=== PATIENT | male | born 1955 | race Caucasian/White ===

== ENCOUNTER 2017-11-13 20:44 | Inpatient (IN) | payer MEDICAID, OTHER ==
[2017-11-13] MEDS: SOD CHLORIDE 0.9% 1,000 ML IV (22:21)
[2017-11-13 22:30] LABS: WHITE BLOOD COUNT 10.1 10^3/ul (4.8-10.8)
[2017-11-13 22:30] LABS: ABNORMAL IP MESSAGE 1; HEMATOCRIT 17.7 % (42.0-52.0); MEAN CORPUSCULAR HEMOGLOBIN 29.1 pg (29.0-33.0); MEAN CORPUSCULAR HGB CONC 29.9 g/dl (32.0-37.0); MEAN CORPUSCULAR VOLUME 97.3 fl (82.0-101.0); MEAN PLATELET VOLUME 9.9 fl (7.4-10.4); PLATELET COUNT 221 10^3/UL (140-415); POSITIVE DIFF @See below; RED BLOOD COUNT 1.82 10^6/ul (4.70-6.10); RED CELL DISTRIBUTION WIDTH 14.5 % (11.5-14.5)
[2017-11-13 22:36] LABS: ADD MAN DIFF? YES; HEMOGLOBIN 5.3 g/dl (14.0-18.0)
[2017-11-13 22:37] LABS: PATH REVIEW? YES
[2017-11-13] MEDS: SOD CHLORIDE 0.9% 250 ML IV (22:52)
[2017-11-13 23:04] LABS: B-TYPE NATRIURETIC PEPTIDE 27400 PG/ML (0-125)
[2017-11-13 23:12] LABS: LACTIC ACID 0.6 mmol/L (0.5-2.0)
[2017-11-13 23:21] LABS: ALANINE AMINOTRANSFERASE 28 IU/L (13-69); ALBUMIN 3.4 g/dl (3.3-4.9); ALBUMIN/GLOBULIN RATIO 1.25; ALKALINE PHOSPHATASE 61 IU/L (42-121); ANION GAP 27 (8-16); ASPARTATE AMINO TRANSFERASE 33 IU/L (15-46); BLOOD UREA NITROGEN 99 mg/dl (7-20); CALCIUM 8.7 mg/dl (8.4-10.2); CARBON DIOXIDE 10 mmol/L (21-31); CHLORIDE 109 mmol/L (97-110); GLUCOSE 186 mg/dl (70-220); LIPASE 99 U/L (23-300); POTASSIUM 5.9 mmol/L (3.5-5.1); SODIUM 140 mmol/L (135-144); TOTAL PROTEIN 6.1 g/dl (6.1-8.1)
[2017-11-13 23:34] LABS: TROPONIN-I 0.022 ng/ml (0.000-0.120)
[2017-11-13 23:43] LABS: ANISOCYTOSIS 1+ (0-0); EOSINOPHILS % (M) 5 % (0-7); LYMPHOCYTES #M 1.4 10^3/ul (0.8-2.9); LYMPHOCYTES % (M) 14 % (15-51); MONOCYTE #M 0.4 10^3/ul (0.3-0.9); MONOCYTES % (M) 4 % (0-11); PLATELET ESTIMATE NORMAL; POIKILOCYTOSIS 3+ (0-0); POLYCHROMASIA 1+ (0-0); SEGMENTED NEUTROPHILS (M) % 77 % (39-77)
[2017-11-14] MEDS ORDERED: BISACODYL (EC) 5 MG TAB PO (01:00)
[2017-11-14] MEDS ORDERED: morphine 2 MG INJ IV (01:00)
[2017-11-14] MEDS ORDERED: NACL 0.9% 3 ML SYG IV (01:00)
[2017-11-14] MEDS ORDERED: ONDANSETRON 4 MG TAB PO (01:00)
[2017-11-14 01:08] LABS: Allen Test ACCEPTAB; Arterial Base Excess -16.9 mmol/L (-3.0-3); Arterial Blood Gas Oxygen Sat 92.8 mmHG (95.0-98.0); Arterial COHb 0.8 % (0.0-3.0); Arterial Fraction of Oxyhgb 92.1 % (93.0-99.0); Arterial HCO3 9.6 mmol/L (22.0-26.0); Arterial MetHb 0 % (0.0-1.5); Arterial Total Hemglobin 5.6 g/dl (12.0-18.0); Arterial pCO2 25.1 mmhg (35-45); MODE ROOM AIR; Site Right Radial
[2017-11-14] MEDS: FUROSEMIDE 40 MG INJ IV ×2 (02:18→05:17)
[2017-11-14] MEDS: NA BICARBONATE 8.4% 50 ML SYG IV ×2 (02:53→05:16)
[2017-11-14] MEDS: PANTOPRAZOLE (EC) 40 MG TAB PO (05:17)
[2017-11-14] MEDS: METOLAZONE 2.5 MG TAB PO (06:16)
[2017-11-14] MEDS: hydrALAzine 20 MG INJ IV ×4 (07:17→23:55)
[2017-11-14] MEDS: NIFEdipine (XL) 60 MG TAB PO (09:09)
[2017-11-14] MEDS: PENTOXIFYLLINE (SR) 400 MG TAB PO (09:09)
[2017-11-14] MEDS ORDERED: GLUCOSE GEL 15 GRAM TUBE PO ×2 (09:30)
[2017-11-14] MEDS ORDERED: GLUCAGON 1 MG INJ IM (09:30)
[2017-11-14] MEDS ORDERED: DEXTROSE 50% 50 ML SYRINGE IV ×2 (09:30)
[2017-11-14] MEDS ORDERED: GLUCOSE GEL 15 GRAM TUBE BUCCAL (09:30)
[2017-11-14 09:47] LABS: IMMEDIATE SPIN CROSSMATCH 1 4
[2017-11-14] MEDS: INSULIN ASPART [NOVOLOG] 3 ML PEN SC ×3 (11:15→20:26)
[2017-11-14 14:42] LABS: WHITE BLOOD COUNT 8.8 10^3/ul (4.8-10.8)
[2017-11-14 14:42] LABS: ADD MAN DIFF? NO; BASOPHILS % 0.3 % (0.0-2.0); EOSINOPHILS # 0.4 10^3/ul (0.0-0.5); EOSINOPHILS % 4.3 % (0.0-7.0); HEMATOCRIT 25.2 % (42.0-52.0); HEMOGLOBIN 8.3 g/dl (14.0-18.0); LYMPHOCYTES # 0.9 10^3/ul (0.8-2.9); LYMPHOCYTES % 10.7 % (15.0-51.0); MEAN CORPUSCULAR HEMOGLOBIN 30.6 pg (29.0-33.0); MEAN CORPUSCULAR HGB CONC 32.9 g/dl (32.0-37.0); MEAN PLATELET VOLUME 10.2 fl (7.4-10.4); MONOCYTE # 0.9 10^3/ul (0.3-0.9); MONOCYTES % 9.8 % (0.0-11.0); NEUTROPHIL # 6.5 10^3/ul (1.6-7.5); PLATELET COUNT 184 10^3/UL (140-415); RED BLOOD COUNT 2.71 10^6/ul (4.70-6.10); RED CELL DISTRIBUTION WIDTH 14.7 % (11.5-14.5)
[2017-11-14 15:13] LABS: ALANINE AMINOTRANSFERASE 23 IU/L (13-69); ALBUMIN 3.3 g/dl (3.3-4.9); ALBUMIN/GLOBULIN RATIO 1.13; ALKALINE PHOSPHATASE 57 IU/L (42-121); ANION GAP 25 (8-16); ASPARTATE AMINO TRANSFERASE 31 IU/L (15-46); BLOOD UREA NITROGEN 98 mg/dl (7-20); CALCIUM 8.5 mg/dl (8.4-10.2); CARBON DIOXIDE 13 mmol/L (21-31); CHLORIDE 111 mmol/L (97-110); CHOL/HDL RATIO 3.3 RATIO; CHOLESTEROL 90 mg/dl (100-200); CREATININE 13.46 mg/dl (0.61-1.24); GLUCOSE 95 mg/dl (70-220); HDL CHOLESTEROL 27 mg/dl (30-78); LDL CHOLESTEROL,CALCULATED 37 mg/dl; MAGNESIUM 3.1 mg/dl (1.7-2.5); POTASSIUM 5.1 mmol/L (3.5-5.1); SODIUM 144 mmol/L (135-144); TOTAL PROTEIN 6.2 g/dl (6.1-8.1); TRIGLYCERIDES 130 mg/dl (0-149)
[2017-11-14 16:12] LABS: HEMOGLOBIN A1C 5.9 % (0-5.9)
[2017-11-14 17:22] LABS: ANION GAP 25 (8-16)
[2017-11-14 17:36] LABS: BLOOD UREA NITROGEN 96 mg/dl (7-20); CALCIUM 8.4 mg/dl (8.4-10.2); CARBON DIOXIDE 12 mmol/L (21-31); CHLORIDE 109 mmol/L (97-110); CREATININE 13.07 mg/dl (0.61-1.24); GLUCOSE 94 mg/dl (70-220); POTASSIUM 5.2 mmol/L (3.5-5.1); SODIUM 141 mmol/L (135-144)
[2017-11-14] MEDS: DOCUSATE SODIUM 100 MG CAP PO (20:25)
[2017-11-14] MEDS: ATORVASTATIN 80 MG TAB PO (20:25)
[2017-11-14 21:35] LABS: ADD UMIC YES; UR ASCORBIC ACID NEGATIVE (NEGATIVE); UR BILIRUBIN (Dip) NEGATIVE (NEGATIVE); UR BLOOD (Dip) 1+ mg/dL (NEGATIVE); UR CLARITY CLEAR (CLEAR); UR COLOR YELLOW (YELLOW); UR GLUCOSE (Dip) 1+ mg/dL (NEGATIVE); UR KETONES (Dip) NEGATIVE (NEGATIVE); UR LEUKOCYTE ESTERASE (Dip) 1+ Leu/ul (NEGATIVE); UR NITRITE (Dip) NEGATIVE (NEGATIVE); UR RBC 19 /HPF (0-5); UR SPECIFIC GRAVITY (Dip) 1.011 (1.003-1.030); UR TOTAL PROTEIN (Dip) 2+ mg/dl (NEGATIVE); UR UROBILINOGEN (Dip) NEGATIVE (NEGATIVE); UR WBC 29 /HPF (0-5)
[2017-11-14 21:45] LABS: ANION GAP 27 (8-16); BLOOD UREA NITROGEN 92 mg/dl (7-20); CALCIUM 8.5 mg/dl (8.4-10.2); CARBON DIOXIDE 11 mmol/L (21-31); CHLORIDE 107 mmol/L (97-110); CREATININE 13.48 mg/dl (0.61-1.24); GLUCOSE 150 mg/dl (70-220); SODIUM 140 mmol/L (135-144)
[2017-11-14 21:48] LABS: SODIUM,URINE RANDOM 104 mmol/L (30-90)
[2017-11-14 21:48] LABS: CREATININE,URINE RANDOM 43.76 mg/dl (20-370)
[2017-11-15] MEDS: ACCU-CHEK XX (02:00)
[2017-11-15] MEDS: hydrALAzine 20 MG INJ IV ×2 (03:47→07:53)
[2017-11-15] MEDS: PANTOPRAZOLE (EC) 40 MG TAB PO ×2 (05:46→05:50)
[2017-11-15 07:36] LABS: ADD MAN DIFF? NO
[2017-11-15 07:42] LABS: WHITE BLOOD COUNT 9.8 10^3/ul (4.8-10.8)
[2017-11-15 07:42] LABS: BASOPHIL # 0.1 10^3/ul (0.0-0.1); BASOPHILS % 0.5 % (0.0-2.0); EOSINOPHILS # 0.4 10^3/ul (0.0-0.5); EOSINOPHILS % 3.6 % (0.0-7.0); HEMATOCRIT 30.2 % (42.0-52.0); HEMOGLOBIN 9.7 g/dl (14.0-18.0); LYMPHOCYTES # 1.1 10^3/ul (0.8-2.9); LYMPHOCYTES % 10.8 % (15.0-51.0); MEAN CORPUSCULAR HEMOGLOBIN 29.3 pg (29.0-33.0); MEAN CORPUSCULAR HGB CONC 32.1 g/dl (32.0-37.0); MEAN CORPUSCULAR VOLUME 91.2 fl (82.0-101.0); MEAN PLATELET VOLUME 9.8 fl (7.4-10.4); MONOCYTE # 0.9 10^3/ul (0.3-0.9); NEUTROPHIL # 7.4 10^3/ul (1.6-7.5); NEUTROPHILS % 75.5 % (39.0-77.0); PLATELET COUNT 186 10^3/UL (140-415); RED BLOOD COUNT 3.31 10^6/ul (4.70-6.10); RED CELL DISTRIBUTION WIDTH 15.4 % (11.5-14.5)
[2017-11-15] MEDS: NIFEdipine (XL) 60 MG TAB PO (07:52)
[2017-11-15] MEDS: PENTOXIFYLLINE (SR) 400 MG TAB PO (07:52)
[2017-11-15] MEDS: INSULIN ASPART [NOVOLOG] 3 ML PEN SC ×4 (07:55→20:24)
[2017-11-15 08:18] LABS: ANION GAP 27 (8-16); BLOOD UREA NITROGEN 97 mg/dl (7-20); CALCIUM 8.9 mg/dl (8.4-10.2); CARBON DIOXIDE 11 mmol/L (21-31); CHLORIDE 110 mmol/L (97-110); CREATININE 13.64 mg/dl (0.61-1.24); GLUCOSE 142 mg/dl (70-220); SODIUM 143 mmol/L (135-144)
[2017-11-15 08:28] LABS: PHOSPHORUS 8.3 mg/dl (2.5-4.9)
[2017-11-15 09:18] LABS: PARTIAL THROMBOPLASTIN TIME 35.1 Sec (25.0-35.0)
[2017-11-15 09:24] LABS: INR 1.06; PROTIME 13.9 Sec (11.9-14.9); PT RATIO 1.1
[2017-11-15] MEDS: HEPARIN 1000 UNITS/ML 10 ML INJ CATHETER (18:00)
[2017-11-15] MEDS: ATORVASTATIN 80 MG TAB PO (20:05)
[2017-11-15] MEDS: ACETAMINOPHEN 325 MG TAB PO (23:20)
[2017-11-16] MEDS: ACCU-CHEK XX (02:00)
[2017-11-16 02:08] LABS: HEPATITIS B SURFACE ANTIGEN NEGATIVE (NEGATIVE)
[2017-11-16 02:25] LABS: HEPATITIS B SURFACE ANTIBODY NEGATIVE (NEGATIVE)
[2017-11-16] MEDS: hydrALAzine 20 MG INJ IV ×3 (03:31→21:51)
[2017-11-16] MEDS: PANTOPRAZOLE (EC) 40 MG TAB PO (05:28)
[2017-11-16 07:46] LABS: ADD MAN DIFF? NO
[2017-11-16 07:54] LABS: BASOPHILS % 0.5 % (0.0-2.0); EOSINOPHILS # 0.4 10^3/ul (0.0-0.5); EOSINOPHILS % 4.8 % (0.0-7.0); HEMATOCRIT 26.4 % (42.0-52.0); HEMOGLOBIN 8.8 g/dl (14.0-18.0); LYMPHOCYTES # 0.8 10^3/ul (0.8-2.9); LYMPHOCYTES % 8.7 % (15.0-51.0); MEAN CORPUSCULAR HGB CONC 33.3 g/dl (32.0-37.0); MEAN CORPUSCULAR VOLUME 90.1 fl (82.0-101.0); MEAN PLATELET VOLUME 10.4 fl (7.4-10.4); MONOCYTE # 1.2 10^3/ul (0.3-0.9); NEUTROPHIL # 6.1 10^3/ul (1.6-7.5); NEUTROPHILS % 71.5 % (39.0-77.0); PLATELET COUNT 169 10^3/UL (140-415); RED BLOOD COUNT 2.93 10^6/ul (4.70-6.10); RED CELL DISTRIBUTION WIDTH 14.8 % (11.5-14.5)
[2017-11-16 07:54] LABS: WHITE BLOOD COUNT 8.6 10^3/ul (4.8-10.8)
[2017-11-16] MEDS: INSULIN ASPART [NOVOLOG] 3 ML PEN SC ×4 (08:00→20:13)
[2017-11-16 08:10] LABS: IRON 54 ug/dl (35-150)
[2017-11-16 08:15] LABS: ANION GAP 20 (8-16); BLOOD UREA NITROGEN 72 mg/dl (7-20); CARBON DIOXIDE 19 mmol/L (21-31); CHLORIDE 106 mmol/L (97-110); GLUCOSE 108 mg/dl (70-220); POTASSIUM 3.9 mmol/L (3.5-5.1); SODIUM 141 mmol/L (135-144)
[2017-11-16 08:16] LABS: CALCIUM 8.3 mg/dl (8.4-10.2); CREATININE 9.52 mg/dl (0.61-1.24); MAGNESIUM 2.5 mg/dl (1.7-2.5); PHOSPHORUS 5.6 mg/dl (2.5-4.9)
[2017-11-16 08:19] LABS: % IRON SATURATION 26 % SAT (22-52); TOTAL IRON BINDING CAPACITY 206 ug/dl (241-421)
[2017-11-16] MEDS: ACETAMINOPHEN 325 MG TAB PO ×2 (08:34→23:40)
[2017-11-16] MEDS: PENTOXIFYLLINE (SR) 400 MG TAB PO (08:34)
[2017-11-16] MEDS: NIFEdipine (XL) 60 MG TAB PO (08:36)
[2017-11-16] MEDS: LOPERAMIDE 2 MG CAP PO (14:35)
[2017-11-16] MEDS: EPOETIN 10000 UNITS/1 ML INJ (ESRD) SC (17:46)
[2017-11-16] MEDS: HEPARIN 1000 UNITS/ML 10 ML INJ CATHETER (18:52)
[2017-11-16] MEDS: ATORVASTATIN 80 MG TAB PO (20:04)
[2017-11-16] MEDS: GUAIFENESIN/DM 5ML CUP PO (22:18)
[2017-11-17] MEDS: hydrALAzine 20 MG INJ IV ×2 (01:55→09:39)
[2017-11-17] MEDS: ACCU-CHEK XX (02:00)
[2017-11-17] MEDS: PANTOPRAZOLE (EC) 40 MG TAB PO (06:09)
[2017-11-17 06:16] LABS: HEMOGLOBIN 8.5 g/dl (14.0-18.0); MEAN CORPUSCULAR HEMOGLOBIN 29.5 pg (29.0-33.0); MEAN CORPUSCULAR HGB CONC 32.7 g/dl (32.0-37.0); MEAN CORPUSCULAR VOLUME 90.3 fl (82.0-101.0); MEAN PLATELET VOLUME 10.3 fl (7.4-10.4); PLATELET COUNT 156 10^3/UL (140-415); RED BLOOD COUNT 2.88 10^6/ul (4.70-6.10); RED CELL DISTRIBUTION WIDTH 14.6 % (11.5-14.5)
[2017-11-17 06:42] LABS: ANION GAP 13 (8-16); BLOOD UREA NITROGEN 52 mg/dl (7-20); CARBON DIOXIDE 24 mmol/L (21-31); CHLORIDE 106 mmol/L (97-110); CREATININE 6.68 mg/dl (0.61-1.24); GLUCOSE 141 mg/dl (70-220); MAGNESIUM 2.2 mg/dl (1.7-2.5); PHOSPHORUS 4.6 mg/dl (2.5-4.9); POTASSIUM 3.6 mmol/L (3.5-5.1); SODIUM 139 mmol/L (135-144)
[2017-11-17 06:53] LABS: ADD MAN DIFF? YES
[2017-11-17] MEDS: PENTOXIFYLLINE (SR) 400 MG TAB PO (08:31)
[2017-11-17] MEDS: NIFEdipine (XL) 60 MG TAB PO (08:31)
[2017-11-17] MEDS: INSULIN ASPART [NOVOLOG] 3 ML PEN SC ×4 (08:37→20:54)
[2017-11-17] MEDS: LISINOPRIL 20 MG TAB PO (09:39)
[2017-11-17] MEDS: ACETAMINOPHEN 325 MG TAB PO (13:38)
[2017-11-17] MEDS: HEPARIN 1000 UNITS/ML 10 ML INJ CATHETER (17:15)
[2017-11-17] MEDS: ATORVASTATIN 80 MG TAB PO (20:31)
[2017-11-18] MEDS: ACCU-CHEK XX (02:00)
[2017-11-18] MEDS: PANTOPRAZOLE (EC) 40 MG TAB PO (06:06)
[2017-11-18 07:38] LABS: ADD MAN DIFF? NO
[2017-11-18 07:48] LABS: WHITE BLOOD COUNT 7.8 10^3/ul (4.8-10.8)
[2017-11-18 07:48] LABS: BASOPHILS % 0.4 % (0.0-2.0); EOSINOPHILS # 0.5 10^3/ul (0.0-0.5); EOSINOPHILS % 6.5 % (0.0-7.0); HEMATOCRIT 26.6 % (42.0-52.0); HEMOGLOBIN 8.6 g/dl (14.0-18.0); LYMPHOCYTES % 12.6 % (15.0-51.0); MEAN CORPUSCULAR HEMOGLOBIN 30.1 pg (29.0-33.0); MEAN CORPUSCULAR HGB CONC 32.3 g/dl (32.0-37.0); MONOCYTE # 1.4 10^3/ul (0.3-0.9); MONOCYTES % 18.4 % (0.0-11.0); NEUTROPHIL # 4.8 10^3/ul (1.6-7.5); NEUTROPHILS % 61.7 % (39.0-77.0); PLATELET COUNT 161 10^3/UL (140-415); RED BLOOD COUNT 2.86 10^6/ul (4.70-6.10); RED CELL DISTRIBUTION WIDTH 14.3 % (11.5-14.5)
[2017-11-18 08:10] LABS: ANION GAP 11 (8-16); BLOOD UREA NITROGEN 27 mg/dl (7-20); CALCIUM 8.1 mg/dl (8.4-10.2); CARBON DIOXIDE 29 mmol/L (21-31); CHLORIDE 104 mmol/L (97-110); CREATININE 4.32 mg/dl (0.61-1.24); GLUCOSE 137 mg/dl (70-220); MAGNESIUM 1.9 mg/dl (1.7-2.5); PHOSPHORUS 3.4 mg/dl (2.5-4.9); POTASSIUM 3.7 mmol/L (3.5-5.1); SODIUM 140 mmol/L (135-144)
[2017-11-18] MEDS: LISINOPRIL 20 MG TAB PO (08:31)
[2017-11-18] MEDS: PENTOXIFYLLINE (SR) 400 MG TAB PO (08:31)
[2017-11-18] MEDS: NIFEdipine (XL) 60 MG TAB PO (08:32)
[2017-11-18] MEDS: INSULIN ASPART [NOVOLOG] 3 ML PEN SC ×4 (08:33→21:21)
[2017-11-18 10:24] LABS: OCCULT BLOOD STOOL NEGATIVE (NEGATIVE)
[2017-11-18] MEDS: morphine LIQ (10 MG/5 ML) CUP PO (10:51)
[2017-11-18] MEDS: ACETAMINOPHEN 325 MG TAB PO (11:02)
[2017-11-18] MEDS: GUAIFENESIN/DM 5ML CUP PO (12:13)
[2017-11-18 18:06] LABS: CREATININE, RANDOM URINE 51 mg/dL (20-370); MICROALBUMIN 139.8 mg/dL; MICROALBUMIN/CREATININE RATIO 2741 (<30)
[2017-11-18] MEDS: ATORVASTATIN 80 MG TAB PO (21:18)
[2017-11-19] MEDS: ACCU-CHEK XX (02:00)
[2017-11-19] MEDS: PANTOPRAZOLE (EC) 40 MG TAB PO (05:23)
[2017-11-19] MEDS: NIFEdipine (XL) 60 MG TAB PO (08:30)
[2017-11-19] MEDS: PENTOXIFYLLINE (SR) 400 MG TAB PO (08:30)
[2017-11-19] MEDS: LISINOPRIL 20 MG TAB PO ×2 (08:34→21:32)
[2017-11-19] MEDS: INSULIN ASPART [NOVOLOG] 3 ML PEN SC ×5 (08:37→21:00)
[2017-11-19] MEDS: hydrALAzine 20 MG INJ IV ×2 (10:38→16:25)
[2017-11-19] MEDS ORDERED: IOHEXOL 300MG/ML 30 ML BTL (12:55)
[2017-11-19] MEDS ORDERED: FENTAnyl 50 MCG/ML VIAL (14:20)
[2017-11-19] MEDS ORDERED: MIDAZOLAM 1 MG/ML 2 ML INJ (14:20)
[2017-11-19] MEDS ORDERED: CEFAZOLIN 1 GM INJ (14:32)
[2017-11-19] MEDS: LIDOCAINE 1% (MPF) 30 ML INJ (15:06)
[2017-11-19] MEDS: HEPARIN 1000 UNITS/ML 10 ML INJ ×2 (15:07→15:18)
[2017-11-19] MEDS ORDERED: LIDOCAINE 2% (SDV) 5 ML INJ (15:33)
[2017-11-19] MEDS ORDERED: ONDANSETRON 4 MG INJ (15:33)
[2017-11-19] MEDS ORDERED: ETOMIDATE 20 MG INJ (15:33)
[2017-11-19] MEDS: EPOETIN 10000 UNITS/1 ML INJ (ESRD) SC (17:51)
[2017-11-19] MEDS: ATORVASTATIN 80 MG TAB PO (21:32)
[2017-11-19] MEDS: morphine LIQ (10 MG/5 ML) CUP PO (21:37)
[2017-11-20] MEDS: ACCU-CHEK XX (02:00)
[2017-11-20] MEDS: PANTOPRAZOLE (EC) 40 MG TAB PO (05:52)
[2017-11-20] MEDS: INSULIN ASPART [NOVOLOG] 3 ML PEN SC ×4 (07:30→21:00)
[2017-11-20] MEDS: PENTOXIFYLLINE (SR) 400 MG TAB PO (09:47)
[2017-11-20] MEDS: NIFEdipine (XL) 60 MG TAB PO (09:47)
[2017-11-20] MEDS: LISINOPRIL 20 MG TAB PO ×2 (09:48→21:42)
[2017-11-20] MEDS: ACETAMINOPHEN 325 MG TAB PO (14:15)
[2017-11-20 14:38] LABS: HEPATITIS C VIRAL ANTIBODY NEGATIVE (NEGATIVE)
[2017-11-20 16:32] LABS: ADD MAN DIFF? NO
[2017-11-20 16:36] LABS: WHITE BLOOD COUNT 9.5 10^3/ul (4.8-10.8)
[2017-11-20 16:36] LABS: BASOPHILS % 0.3 % (0.0-2.0); EOSINOPHILS # 0.5 10^3/ul (0.0-0.5); EOSINOPHILS % 4.7 % (0.0-7.0); HEMATOCRIT 26.3 % (42.0-52.0); HEMOGLOBIN 8.3 g/dl (14.0-18.0); LYMPHOCYTES # 1.2 10^3/ul (0.8-2.9); LYMPHOCYTES % 12.9 % (15.0-51.0); MEAN CORPUSCULAR HEMOGLOBIN 30.3 pg (29.0-33.0); MEAN CORPUSCULAR HGB CONC 31.6 g/dl (32.0-37.0); MEAN PLATELET VOLUME 9.8 fl (7.4-10.4); MONOCYTE # 1.3 10^3/ul (0.3-0.9); MONOCYTES % 13.2 % (0.0-11.0); NEUTROPHIL # 6.5 10^3/ul (1.6-7.5); NEUTROPHILS % 68.6 % (39.0-77.0); PLATELET COUNT 169 10^3/UL (140-415); RED BLOOD COUNT 2.74 10^6/ul (4.70-6.10); RED CELL DISTRIBUTION WIDTH 14.5 % (11.5-14.5)
[2017-11-20 16:57] LABS: ANION GAP 13 (8-16); BLOOD UREA NITROGEN 27 mg/dl (7-20); CARBON DIOXIDE 28 mmol/L (21-31); CHLORIDE 101 mmol/L (97-110); CREATININE 4.24 mg/dl (0.61-1.24); GLUCOSE 138 mg/dl (70-220); POTASSIUM 4.3 mmol/L (3.5-5.1); SODIUM 138 mmol/L (135-144)
[2017-11-20] MEDS: ATORVASTATIN 80 MG TAB PO (21:41)
[2017-11-20] MEDS: DIPHENHYDRAMINE 50 MG CAP PO (21:42)
[2017-11-20] MEDS ORDERED: DIPHENHYDRAMINE 50 MG CAP PO (22:00)
[2017-11-21] MEDS: ACCU-CHEK XX (02:00)
[2017-11-21] MEDS: PANTOPRAZOLE (EC) 40 MG TAB PO (05:40)
[2017-11-21 05:57] LABS: ADD MAN DIFF? NO
[2017-11-21 06:07] LABS: BASOPHILS % 0.3 % (0.0-2.0); EOSINOPHILS # 0.5 10^3/ul (0.0-0.5); EOSINOPHILS % 5.2 % (0.0-7.0); HEMATOCRIT 27.2 % (42.0-52.0); HEMOGLOBIN 8.7 g/dl (14.0-18.0); LYMPHOCYTES # 1.3 10^3/ul (0.8-2.9); LYMPHOCYTES % 14.2 % (15.0-51.0); MEAN CORPUSCULAR HEMOGLOBIN 30.6 pg (29.0-33.0); MEAN CORPUSCULAR VOLUME 95.8 fl (82.0-101.0); MEAN PLATELET VOLUME 10.6 fl (7.4-10.4); MONOCYTE # 1.3 10^3/ul (0.3-0.9); MONOCYTES % 14.3 % (0.0-11.0); NEUTROPHIL # 5.8 10^3/ul (1.6-7.5); NEUTROPHILS % 65.5 % (39.0-77.0); PLATELET COUNT 177 10^3/UL (140-415); RED BLOOD COUNT 2.84 10^6/ul (4.70-6.10); RED CELL DISTRIBUTION WIDTH 14.1 % (11.5-14.5)
[2017-11-21 06:07] LABS: WHITE BLOOD COUNT 8.8 10^3/ul (4.8-10.8)
[2017-11-21 06:34] LABS: ANION GAP 14 (8-16)
[2017-11-21 06:41] LABS: BLOOD UREA NITROGEN 33 mg/dl (7-20); CALCIUM 8.1 mg/dl (8.4-10.2); CARBON DIOXIDE 27 mmol/L (21-31); CHLORIDE 101 mmol/L (97-110); CREATININE 4.79 mg/dl (0.61-1.24); GLUCOSE 138 mg/dl (70-220); POTASSIUM 4.2 mmol/L (3.5-5.1); SODIUM 138 mmol/L (135-144)
[2017-11-21] MEDS: INSULIN ASPART [NOVOLOG] 3 ML PEN SC ×4 (07:30→20:34)
[2017-11-21] MEDS: LISINOPRIL 20 MG TAB PO ×2 (08:20→20:27)
[2017-11-21] MEDS: NIFEdipine (XL) 60 MG TAB PO (08:20)
[2017-11-21] MEDS: PENTOXIFYLLINE (SR) 400 MG TAB PO (08:22)
[2017-11-21] MEDS: HEPARIN 1000 UNITS/ML 10 ML INJ CATHETER (14:59)
[2017-11-21] MEDS: EPOETIN 10000 UNITS/1 ML INJ (ESRD) SC (18:46)
[2017-11-21] MEDS: ATORVASTATIN 80 MG TAB PO (20:28)
[2017-11-21] MEDS: DIPHENHYDRAMINE 50 MG CAP PO (20:30)
[2017-11-21] MEDS: ACETAMINOPHEN 325 MG TAB PO (21:48)
[2017-11-21] MEDS: hydrALAzine 20 MG INJ IV (22:42)
[2017-11-22] MEDS: ACCU-CHEK XX (02:00)
[2017-11-22] MEDS: PANTOPRAZOLE (EC) 40 MG TAB PO (05:13)
[2017-11-22] MEDS: INSULIN ASPART [NOVOLOG] 3 ML PEN SC ×4 (07:30→20:48)
[2017-11-22] MEDS: LISINOPRIL 20 MG TAB PO ×2 (08:16→20:49)
[2017-11-22] MEDS: NIFEdipine (XL) 60 MG TAB PO (08:18)
[2017-11-22] MEDS: PENTOXIFYLLINE (SR) 400 MG TAB PO (08:18)
[2017-11-22] MEDS: ATORVASTATIN 80 MG TAB PO (20:48)
[2017-11-23] MEDS: ACCU-CHEK XX (01:15)
[2017-11-23] MEDS: PANTOPRAZOLE (EC) 40 MG TAB PO (05:48)
[2017-11-23] MEDS: INSULIN ASPART [NOVOLOG] 3 ML PEN SC ×3 (08:00→17:32)
[2017-11-23] MEDS: PENTOXIFYLLINE (SR) 400 MG TAB PO (08:00)
[2017-11-23] MEDS: NIFEdipine (XL) 60 MG TAB PO (08:01)
[2017-11-23] MEDS: LISINOPRIL 20 MG TAB PO ×2 (08:01→18:48)
[2017-11-23] MEDS: HEPARIN 1000 UNITS/ML 10 ML INJ CATHETER (18:29)
[2017-11-23] MEDS: EPOETIN 10000 UNITS/1 ML INJ (ESRD) SC (18:40)
== END 2017-11-23 19:45 | disposition home or self-care (01) | DRG 674 ==
LOC: PP2 11-14 03:42 → MS4 11-14 00:08 → PP2 11-19 22:29 → E/R 20:44
PROC: 0JH63XZ Insertion of Tunneled Vascular Access Device into Chest Subcutaneous Tissue and Fascia, Percutaneous Approach (ICD-10-PCS; principal; 2017-11-19 14:17)
PROC: 02HV33Z Insertion of Infusion Device into Superior Vena Cava, Percutaneous Approach (ICD-10-PCS; 2017-11-19 14:17)
PROC: 02HV33Z Insertion of Infusion Device into Superior Vena Cava, Percutaneous Approach (ICD-10-PCS; 2017-11-19 14:17)
PROC: 5A1D70Z Performance of Urinary Filtration, Intermittent, Less than 6 Hours Per Day (ICD-10-PCS; 2017-11-19 14:17)
DX: N17.9 Acute kidney failure, unspecified (principal); I12.0 Hypertensive chronic kidney disease with stage 5 chronic kidney disease or end stage renal disease; E87.2 Acidosis; I69.954 Hemiplegia and hemiparesis following unspecified cerebrovascular disease affecting left non-dominant side; N18.6 End stage renal disease; E87.5 Hyperkalemia; D63.1 Anemia in chronic kidney disease; E87.70 Fluid overload, unspecified; E11.22 Type 2 diabetes mellitus with diabetic chronic kidney disease; E83.9 Disorder of mineral metabolism, unspecified; E11.51 Type 2 diabetes mellitus with diabetic peripheral angiopathy without gangrene; E78.5 Hyperlipidemia, unspecified; Z79.4 Long term (current) use of insulin; Z89.512 Acquired absence of left leg below knee
CPT/HCPCS: 36415; 36430; 36600; 71045; 74176; 76775; 80048; 80053; 80061; 81001; 81003; 82043; 82270; 82803; 82962; 83036; 83540; 83605; 83690; 83735; 83880; 84100; 84155; 84300; 84443; 84484; 85025; 85610; 85730; 86706; 86803; 86850; 86900; 86901; 86920; 87340; 88300; 90935; 93005; 93306; 93970; 96360; 99285-25